=== PATIENT | male | born 1975 | race African-American/Black ===

== ENCOUNTER 2025-03-30 09:25 | Day surgery (SDC) | payer BC ==
[2025-03-30] MEDS: Lactated Ringers 1,000 ML IV SCH (10:20)
[2025-03-30] MEDS ORDERED: propofoL 500 MG/50 ML 50 ML ONE (10:47)
[2025-03-30] MEDS ORDERED: Propofol 200 MG/20 ML SDV ONE ×2 (11:00→12:01)
[2025-03-30] MEDS ORDERED: Lactated Ringers 1,000 ML IV SCH (12:30)
== END 2025-03-30 13:25 | disposition home or self-care (01) ==
LOC: MW.SDS 09:25
PROVIDERS: ATTEND Surgery
DX: Z12.11 Encounter for screening for malignant neoplasm of colon (principal); K31.A11 Gastric intestinal metaplasia without dysplasia, involving the antrum; K64.8 Other hemorrhoids; K44.9 Diaphragmatic hernia without obstruction or gangrene; K21.00 Gastro-esophageal reflux disease with esophagitis, without bleeding; F17.210 Nicotine dependence, cigarettes, uncomplicated
CPT/HCPCS: 00813; J2371; J2704; J7120